=== PATIENT | male | born 1940 | race Caucasian/White ===

== ENCOUNTER 2020-02-04 17:54 | Emergency (ER) | payer OTHER ==
--- NOTE | 2020-02-04 18:29 | EDPHYS ---
Physician Documentation [facility] Name: Filipe Jacobo Age: 79 yrs Sex: Male : 1940 Arrival Date: 02/04/2020 Time: 17:55 Bed 4 Private MD: ED Physician Santhosh Moore HPI: 02/04 14:51 This 79 yrs old Male presents to ER via EMS with complaints of Back Pain. kdr 14:51 The patient presents with pain that is acute, and decreased range of motion, The kdr patient has a history of low back pain and issues. He was walking today and tripped and hitting the wall and had immediate pain in his low back. He feels that he has a bulging disk. he denied any issue with bowel or bladder control. He had no other associated s/s. After discussing the issue with the patient he informed me that he wanted (expected) more aggressive treatment of his current problem. Specifically, he wanted someone to operate on his buttock to take out some metal so that he could have an MRI and then received some sort of surgical intervention to address what he thought was a bulging disk. Since none of that could be accompos. Historical: - Allergies: 02/03 18:02 No Known Allergies; iw - Home Meds: 18:02 duloxetine 30 mg oral cpDR 1 cap once daily [Active]; [place] 10-325 mg Oral tab twice a iw day [Active]; telmisartan-hydrochlorothiazid 80-12.5 mg oral tab 1 tab once daily [Active]; cyclobenzaprine 10 mg Oral tab 1 tab 3 times per day [Active]; mirtazapine 45 mg Oral tab 1 tab once daily [Active]; temazepam 15 mg Oral cap 1 cap once daily [Active]; amlodipine 5 mg tab 1 tab once daily [Active]; - PMHx: 18:02 Hypertension; Back pain; iw - PSHx: 18:02 laminectomy; Disc surgery; neck; fusions; spurs; iw - Immunization history:: Adult Immunizations up to date. - Social history:: Smoking status: Patient/guardian denies using tobacco, but has a distant history of tobacco abuse. ROS: 02/04 15:06 Constitutional: Negative for fever, chills, and weight loss, Eyes: Negative for injury, kdr pain, redness, and discharge, ENT: Negative for injury, pain, and discharge, Neck: Negative for injury, pain, and swelling, Cardiovascular: Negative for chest pain, palpitations, and edema, Respiratory: Negative for shortness of breath, cough, wheezing, and pleuritic chest pain, Abdomen/GI: Negative for abdominal pain, nausea, vomiting, diarrhea, and constipation, : Negative for injury, bleeding, discharge, and swelling, MS/Extremity: Negative for injury and deformity, Skin: Negative for injury, rash, and discoloration, Neuro: Negative for headache, weakness, numbness, tingling, and seizure activity. Psych: Negative for depression, anxiety, suicide ideation, homicidal ideation, and hallucinations, Allergy/Immunology: Negative for hives, rash, and allergies, Endocrine: Negative for neck swelling, polydipsia, polyuria, polyphagia, and marked weight changes, Hematologic/Lymphatic: Negative for swollen nodes, abnormal bleeding, and unusual bruising. Back: Positive for injury or acute deformity, decreased range of motion, pain at rest, pain with movement, of the low back area. Exam: 15:06 Constitutional: This is a well developed, well nourished patient who is awake, alert, kdr and in no acute distress. Head/Face: Normocephalic, atraumatic. Eyes: Pupils equal round and reactive to light, extra-ocular motions intact. Lids and lashes normal. Conjunctiva and sclera are non-icteric and not injected. Cornea within normal limits. Periorbital areas with no swelling, redness, or edema. Neck: Trachea midline, no thyromegaly or masses palpated, and no cervical lymphadenopathy. Supple, full range of motion without nuchal rigidity, or vertebral point tenderness. No Meningismus. Chest/axilla: Normal chest wall appearance and motion. Nontender with no deformity. No lesions are appreciated. Cardiovascular: Regular rate and rhythm with a normal S1 and S2. No gallops, murmurs, or rubs. Normal PMI, no JVD. No pulse deficits. Respiratory: Lungs have equal breath sounds bilaterally, clear to auscultation and percussion. No rales, rhonchi or wheezes noted. No increased work of breathing, no retractions or nasal flaring. Abdomen/GI: Soft, non-tender, with normal bowel sounds. No distension or tympany. No guarding or rebound. No evidence of tenderness throughout. Skin: Warm, dry with normal turgor. Normal color with no rashes, no lesions, and no evidence of cellulitis. MS/ Extremity: Pulses equal, no cyanosis. Neurovascular intact. Full, normal range of motion. Neuro: Awake and alert, GCS 15, oriented to person, place, time, and situation. Cranial nerves II-XII grossly intact. Motor strength 5/5 in all extremities. Sensory grossly intact. Cerebellar exam normal. Normal gait. Psych: Awake, alert, with orientation to person, place and time. Behavior, mood, and affect are within normal limits. 15:06 Back: pain, that is mild, of the low back area, ROM is painful, with all movement, normal spinal alignment noted, vertebral tenderness, is appreciated at lumbar spine. Vital Signs: 02/03 17:56 BP 157 / 63; Pulse 63; Resp 16; Temp 98.4; Pulse Ox 100% ; Weight 90.72 kg; Height 5 sv ft. 9 in. (175.26 cm); 17:56 Body Mass Index 29.53 (90.72 kg, 175.26 cm) sv MDM: 18:29 Patient medically screened. kdr 02/04 15:06 Data reviewed: vital signs, nurses notes. Counseling: I had a detailed discussion with kdr the patient and/or guardian regarding: the historical points, exam findings, and any diagnostic results supporting the discharge/admit diagnosis, the need for outpatient follow up. ED course: The patient refused further evaluation and treatment in the ED. He stated that he understood that the evaluation and treatment he was expecting was not available her and that he was feeling better and would follow-up with his doctor. He was disappointed but otherwise satisfied with the outcome. Administered Medications: No medications were administered Disposition: 02/04/20 18:29 Discharged to Home. Impression: Low back pain. - Condition is Stable. - Discharge Instructions: Musculoskeletal Pain, Back Pain, Adult, [id number]. - Prescriptions for ketorolac 10 mg Oral tablet - take 1 tablet by ORAL route every 4-6 hours As needed not to exceed 40 mg in 24hrs; 20 tablet. Pepcid 20 mg Oral Tablet - take 1 tablet by ORAL route every 12 hours for 5 days; 20 tablet. Robaxin 500 mg Oral Tablet - take 2 tablet by ORAL route every 6 hours As needed; 40 tablet. Medrol ([place]row) 4 mg Oral Tablets, Dose Pack - take 1 tablet by ORAL route as directed - follow package instructions; 1 packet. Tylenol- Codeine #3 300-30 mg Oral Tablet - take 2 tablets by ORAL route every 6 hours As needed; 15 tablet. - Medication Reconciliation Form, Thank You Letter form. - Follow up: Private Physician; When: 2 - 3 days; Reason: If symptoms return, Further diagnostic work-up, Recheck today's complaints, Continuance of care, Re-evaluation by your physician. - Problem is an acute exacerbation. - Symptoms have improved. Signatures: Malaika George RN RN sv Santhosh Moore MD MD kdr Maral Prui RN RN iw Corrections: (The following items were deleted from the chart) 02/03 19:05 18:29 02/04/2020 18:29 Discharged to Home. Impression: Low back pain. Condition is sv Stable. Forms are Medication Reconciliation Form, Thank You Letter, Antibiotic Education, Prescription Opioid Use. Follow up: Private Physician; When: 2 - 3 days; Reason: If symptoms return, Further diagnostic work-up, Recheck today's complaints, Continuance of care, Re-evaluation by your physician. Problem is an acute exacerbation. Symptoms have improved. kdr
--- NOTE | 2020-02-04 18:29 | ER ---
Nurse's Notes [facility] Name: Filipe Jacobo Age: 79 yrs Sex: Male : 1940 Arrival Date: 02/04/2020 Time: 17:55 Bed 4 Private MD: Diagnosis: Low back pain Presentation: 02/03 17:56 Initial Sepsis Screen: Does the patient meet any 2 criteria? No. Patient's initial sv sepsis screen is negative. Does the patient have a suspected source of infection? No. Patient's initial sepsis screen is negative. Risk Assessment: Do you want to hurt yourself or someone else? Patient reports no desire to harm self or others. 17:57 Chief complaint: EMS states: hx of herniated disc, back pain 03/27 today, was seen in an ER in [place] last night. Coronavirus screen: At this time, the client does not indicate any symptoms associated with coronavirus-19. Ebola Screen: Patient negative for fever greater than or equal to 101.5 degrees Fahrenheit, and additional compatible Ebola Virus Disease symptoms Patient denies exposure to infectious person. Patient denies travel to an Ebola-affected area in the 21 days before illness onset. No symptoms or risks identified at this time. Onset of symptoms was February 04, 2020. 17:57 Method Of Arrival: EMS: [facility] 17:57 Acuity: LORIE 3 Triage Assessment: 17:56 General: Appears in no apparent distress. uncomfortable, well developed, Behavior is sv calm, cooperative, appropriate for age. Pain: Complains of pain in back Is continuous, Aggravated by increased activity, Noted to be resistant to movement. Neuro: Level of Consciousness is awake, alert, obeys commands, Oriented to person, place, time, situation, Moves all extremities. Full function. Respiratory: Airway is patent Respiratory effort is even, unlabored, Respiratory pattern is regular, symmetrical. Derm: Skin is normal. Musculoskeletal: Range of motion: intact in all extremities. Historical: - Allergies: 18:02 No Known Allergies; iw - Home Meds: 18:02 duloxetine 30 mg oral cpDR 1 cap once daily [Active]; [place] 10-325 mg Oral tab twice a iw day [Active]; telmisartan-hydrochlorothiazid 80-12.5 mg oral tab 1 tab once daily [Active]; cyclobenzaprine 10 mg Oral tab 1 tab 3 times per day [Active]; mirtazapine 45 mg Oral tab 1 tab once daily [Active]; temazepam 15 mg Oral cap 1 cap once daily [Active]; amlodipine 5 mg tab 1 tab once daily [Active]; - PMHx: 18:02 Hypertension; Back pain; iw - PSHx: 18:02 laminectomy; Disc surgery; neck; fusions; spurs; iw - Immunization history:: Adult Immunizations up to date. - Social history:: Smoking status: Patient/guardian denies using tobacco, but has a distant history of tobacco abuse. Screenin:55 Abuse screen: Denies threats or abuse. Denies injuries from another. Nutritional sv screening: No deficits noted. Tuberculosis screening: No symptoms or risk factors identified. Fall Risk None identified. Assessment: 18:40 Reassessment: Patient appears in no apparent distress at this time. No changes from sv previously documented assessment. Patient and/or family updated on plan of care and expected duration. Pain level reassessed. Patient is alert, oriented x 3, equal unlabored respirations, skin warm/dry/pink. Vital Signs: 17:56 BP 157 / 63; Pulse 63; Resp 16; Temp 98.4; Pulse Ox 100% ; Weight 90.72 kg; Height 5 sv ft. 9 in. (175.26 cm); 17:56 Body Mass Index 29.53 (90.72 kg, 175.26 cm) sv ED Course: 17:55 Patient arrived in ED. sv 17:55 Malaika George, RN is Primary Nurse. sv 17:55 Arm band placed on. sv 17:55 Patient has correct armband on for positive identification. Bed in low position. Call sv light in reach. Side rails up X2. Pulse ox on. NIBP on. Door closed. Head of bed elevated. 17:58 Triage completed. iw 18:13 Santhosh Moore MD is Attending Physician. kdr 18:22 Awaiting ED provider evaluation. sv 18:40 No provider procedures requiring assistance completed. Patient did not have IV access sv during this emergency room visit. Administered Medications: No medications were administered Outcome: 18:29 Discharge ordered by . kdr 18:40 Discharged to home ambulatory. sv 18:40 Condition: stable 18:40 Discharge instructions given to patient, Instructed on discharge instructions, follow up and referral plans. no drinking with medication, no driving heavy equipment, medication usage, Demonstrated understanding of instructions, follow-up care, medications, Prescriptions given X x5 19:05 Patient left the ED. sv Signatures: Malaika George, RN Santhosh Hancock MD MD kdr Williams, Irene, RN RN iw
[2020-02-04 19:55] VITALS: BP 157/63; TEMP 98.4; O2SAT 100
== END 2020-02-04 19:05 | disposition home or self-care (01) ==
LOC: ER 17:54
DX: M54.5 Low back pain (principal); I10 Essential (primary) hypertension
CPT/HCPCS: 99283